=== PATIENT | male | born 1960 | race Caucasian/White ===

== ENCOUNTER → 2016-09-17 | Outpatient (CLI) | payer MEDICARE, OTHER | LOC: ECHO 10:00 | DX: R00.2 Palpitations (principal); R06.02 Shortness of breath; R42 Dizziness and giddiness; I25.10 Atherosclerotic heart disease of native coronary artery without angina pectoris; I36.1 Nonrheumatic tricuspid (valve) insufficiency; I50.32 Chronic diastolic (congestive) heart failure; R60.9 Edema, unspecified; Z98.61 Coronary angioplasty status | CPT/HCPCS: ECHO; 93306; 93880; 94010; 94729 ==